=== PATIENT | male | born 1990 | race Caucasian/White ===

== ENCOUNTER 2017-05-29 07:12 | Day surgery (SDC) | payer BC ==
[2017-05-29] MEDS ORDERED: Lactated Ringers 1,000 ML IV SCH (07:15)
[2017-05-29] MEDS ORDERED: Propofol 200 MG/20 ML SDV IV ONE (08:30)
--- NOTE | 2017-05-29 08:51 | PCM.OPNOTE ---
- General Post-Op/Procedure Note Date of Surgery/Procedure: 05/29/17 Operative Procedure(s): c scope Findings: int hemorrhoids Pre Op Diagnosis: bleeding per rectum Post-Op Diagnosis: int hemorrhoids Anesthesia Technique: MAC Primary Surgeon: Yusuf Stafford Anesthesia Provider: Tunde Gonzalez Pathology: none Complications: None Condition: Good Free Text/Narrative:: see dictation
[2017-05-29 10:33] VITALS: BP 106/58
--- NOTE | 2017-05-29 14:23 | OR ---
DATE OF OPERATION: 05/29/2017 SURGEON: Yusuf Stafford MD PROCEDURE PERFORMED: Colonoscopy. PREOPERATIVE DIAGNOSIS: Bleeding per rectum. POSTOPERATIVE DIAGNOSIS: Internal hemorrhoids. INDICATIONS FOR PROCEDURE: This is a 27-year-old white male, who is referred with a history of some bright red blood per rectum. He was offered and accepted colonoscopy. DESCRIPTION OF PROCEDURE: After an excellent IV sedation was administered, digital rectal exam was performed. No marked abnormality was noted. The flexible colonoscope was inserted and advanced to the cecum without difficulty. The prep was excellent. The following findings were noted. Ascending colon, unremarkable. Transverse colon, unremarkable. Descending colon, unremarkable. Sigmoid and rectum unremarkable. Retroflexing the scope, there was evidence of internal hemorrhoids. The patient was taken to recovery room in good condition. /[id number] /MODL
== END 2017-05-29 10:04 | disposition home or self-care (01) ==
LOC: FB.SDS 07:12
PROVIDERS: ATTEND Surgery
DX: K64.8 Other hemorrhoids (principal); Z87.891 Personal history of nicotine dependence; Z79.899 Other long term (current) drug therapy; Z98.890 Other specified postprocedural states
CPT/HCPCS: 45378; J2704; J7120

== ENCOUNTER 2017-08-30 22:40 | Emergency (ER) | payer BC ==
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
[2017-08-31 09:08] VITALS: BP 115/63
== END 2017-08-31 00:25 | disposition home or self-care (01) ==
LOC: FB.ED 22:40
DX: F10.10 Alcohol abuse, uncomplicated (principal); Y90.6 Blood alcohol level of 120-199 mg/100 ml; Z88.5 Allergy status to narcotic agent
CPT/HCPCS: 36415; 80048; 80305; 85025; 99282; G0480

== ENCOUNTER 2023-01-09 09:17 | Day surgery (SDC) | payer BC, OTHER ==
[~2023-01-09 09:17] MED LIST: Lactated Ringers 1,000 ML IV SCH; Sodium Chloride 0.9% 10 ML Syringe FLUSH PRN
[2023-01-09] MEDS ORDERED: Propofol 200 MG/20 ML SDV IV ONE (09:18)
[2023-01-09] MEDS ORDERED: Lidocaine 2% 5 ML SDV INJECT ONE (09:18)
[2023-01-09 13:58] VITALS: BP 113/76; PULSE 56
== END 2023-01-09 12:18 | disposition home or self-care (01) ==
LOC: FB.SDS 09:17
PROVIDERS: ATTEND Surgery
DX: K21.00 Gastro-esophageal reflux disease with esophagitis, without bleeding (principal); Z88.0 Allergy status to penicillin; Z79.899 Other long term (current) drug therapy; Z87.891 Personal history of nicotine dependence
CPT/HCPCS: 00731; 88305; J2704; J7120